=== PATIENT | male | born 2000 | race Caucasian/White ===

== ENCOUNTER 2024-02-01 21:05 | Emergency (ER) | payer OTHER ==
[2024-02-01 21:20] LABS: BASOPHILS ABSOLUTE AUTO 0.07 K/uL (0.00-0.20); BASOPHILS PERCENT AUTO 0.8 % (0.0-1.0); EOSINOPHILS ABSOLUTE AUTO 0.12 K/uL (0.00-0.45); EOSINOPHILS PERCENT AUTO 1.4 % (0.0-6.0); HEMATOCRIT 43.7 % (42.0-52.0); HEMOGLOBIN 15.3 g/dL (14.0-18.0); IMMATURE GRAN ABSOLUTE AUTO 0.16 K/uL (0.00-0.05); IMMATURE GRAN PERCENT AUTO 1.9 % (0.0-0.4); LYMPHOCYTES ABSOLUTE AUTO 3.69 K/uL (1.00-4.80); LYMPHOCYTES PERCENT AUTO 43.9 % (24.0-44.0); MEAN CORPUSCULAR HEMOGLOBIN 29.8 pg (28.0-32.0); MEAN PLATELET VOLUME 9.1 fL (9.4-12.4); MONOCYTES ABSOLUTE AUTO 0.56 K/uL (0.00-0.80); MONOCYTES PERCENT AUTO 6.7 % (0.0-8.0); NEUTROPHILS ABSOLUTE AUTO 3.81 K/uL (1.80-7.70); NEUTROPHILS PERCENT AUTO 45.3 % (41.0-71.0); PLATELET COUNT,PLT 319 K/uL (150-400); RED BLOOD CELL COUNT 5.14 M/uL (4.52-5.90); WHITE BLOOD CELL COUNT,WBC 8.41 K/uL (3.9-11.3)
[2024-02-01 21:33] LABS: INR 0.95 (0.86-1.11)
[2024-02-01] MEDS: Iopamidol 755 MG/ML 500 ML Multipack Bottle IVPUSH STA (21:48)
[2024-02-01 21:52] LABS: A/G RATIO 1.3 (0.9-1.6); ALANINE AMINOTRANSFERASE,ALT 81 IU/L (14-63); ALBUMIN 4.1 g/dL (3.4-5.0); ALKALINE PHOSPHATASE 121 U/L (46-116); ASPARTATE AMNIOTRANSFERASE,AST 25 IU/L (15-37); BILIRUBIN TOTAL 0.5 mg/dL (0.2-1.0); BLOOD UREA NITROGEN,BUN 20 mg/dL (7.0-18.0); CALCIUM 9.9 mg/dL (8.5-10.1); CARBON DIOXIDE,CO2 27.5 mmol/L (21.0-32.0); CHLORIDE,CL 105 mmol/L (98-107); CREATININE 1.2 mg/dL (0.8-1.3); EST CRCL DRUG DOSING (CG) 89.51 mL/min; ESTIMATED GFR 87 mL/min (>60); ETHANOL BLOOD MEDICAL <3 mg/dL; GLUCOSE RANDOM 124 mg/dL (74-106); POTASSIUM,K 4.4 mmol/L (3.5-5.1); PROTEIN TOTAL,TP 7.3 g/dL (6.4-8.2); SODIUM,NA 142 mmol/L (136-148)
[2024-02-01] MEDS: Morphine 4 MG/ML Syringe IVPUSH ONE (22:11)
[2024-02-01 22:55] LABS: APPEARANCE,URINE CLEAR; BILIRUBIN,URINE NEGATIVE (NEGATIVE); COLOR,URINE YELLOW; GLUCOSE,URINE NEGATIVE (NEGATIVE); KETONES,URINE NEGATIVE (NEGATIVE); LEUKOCYTE ESTERASE,URINE NEGATIVE (NEGATIVE); NITRITE,URINE NEGATIVE (NEGATIVE); OCCULT BLOOD,URINE NEGATIVE (NEGATIVE); PROTEIN,URINE NEGATIVE (NEGATIVE); UROBILINOGEN,URINE 0.2 EU/dL (<2.0)
[2024-02-01 23:01] LABS: AMPHETAMINES SCREEN, URINE NEGATIVE (CUTOFF=500); BARBITURATE SCREEN,URINE NEGATIVE (CUTOFF=200); BENZODIAZEPINES SCREEN,URINE NEGATIVE (CUTOFF=150); BUPRENORPHINE SCREEN,URINE NEGATIVE (CUTOFF=10); METHADONE SCREEN, URINE NEGATIVE (CUTOFF=200); METHAMPHETAMINES SCREEN, URINE NEGATIVE (CUTOFF=500); OXYCODONE SCREEN,URINE NEGATIVE (CUT0FF=100); PCP SCREEN,URINE NEGATIVE (CUTOFF=25); THC SCREEN,URINE 20 NG/ML NEGATIVE (CUTOFF=50)
== END 2024-02-01 23:45 | disposition home or self-care (01) ==
LOC: MW.ED 21:05
DX: S42.031A Displaced fracture of lateral end of right clavicle, initial encounter for closed fracture (principal); Z75.8 Other problems related to medical facilities and other health care; V86.56XA Driver of dirt bike or motor/cross bike injured in nontraffic accident, initial encounter; Y93.89 Activity, other specified
CPT/HCPCS: 36415; 70450; 71260; 72125; 73000; 74177; 80053; 80305; 80307; 81003; 85025; 85610; 96374; 99284; J2270; Q9967; 99285

== ENCOUNTER 2024-02-08 10:23 | Day surgery (SDC) | payer OTHER ==
[~2024-02-08 10:23] MED LIST: Albuterol 0.083% 2.5 MG/3 ML Neb Soln NEB PRN; HYDROmorphone 1 MG/ML Syringe IVPUSH PRN; Ketamine HCL/NACL, ISO-OSM 50 MG/5 ML Syringe ONE; Lidocaine 2% 5 ML SDV ONE; Metoclopramide 10 MG/2 ML SDV IVPUSH PRN; Midazolam 1 MG/ML 2 ML SDV ONE; Morphine 2 MG/ML SYRINGE IVPUSH PRN; Naloxone 0.4 MG/ML SDV IVPUSH PRN; Ondansetron 4 MG/2 ML SDV IVPUSH PRN; Rocuronium Bromide 50 MG/5 ML Syringe ONE; Ropivacaine 0.5% 5 MG/ML 30 ML SDV ONE; ceFAZolin 2 GM in Sodium Chloride 0.9% 50 ML IV ONE; dexmedeTOMIDine HCl 200 MCG/2 ML SDV ONE; droPERidol 5 MG/2 ML SDV IVPUSH PRN; fentaNYL 100 MCG/2 ML SDV ONE; fentaNYL 250 MCG/5 ML SDV ONE; fentaNYL 50 MCG/ML SDV IVPUSH PRN; propofoL 0 ML ONE
[2024-02-08] MEDS ORDERED: Bupivacaine 0.25% 30 ML SDV ONE (11:03)
[2024-02-08] MEDS ORDERED: Bupivacaine 0.5%/EPINEPHrine 1:200,000 30 ML SDV ONE (11:03)
[2024-02-08] MEDS: Lactated Ringers 1,000 ML IV SCH (11:08)
[2024-02-08] MEDS ORDERED: Lidocaine 2% 11 ML Jelly Filled Syringe ONE (12:43)
[2024-02-08] MEDS ORDERED: ceFAZolin 2 GM Vial ONE (13:08)
[2024-02-08] MEDS ORDERED: Dexamethasone 4 MG/ML 5 ML MDV ONE (13:47)
[2024-02-08] MEDS ORDERED: Ketorolac 30 MG/ML SDV ONE (13:47)
[2024-02-08] MEDS ORDERED: Phenylephrine HCl In 0.9% NaCl 1 MG/10 ML Syringe ONE (13:47)
[2024-02-08] MEDS ORDERED: Ondansetron 4 MG/2 ML SDV ONE (13:47)
[2024-02-08] MEDS ORDERED: Propofol 200 MG/20 ML SDV ONE (14:26)
[2024-02-08] MEDS ORDERED: propofoL 50 ML ONE (14:26)
[2024-02-08] MEDS ORDERED: Sugammadex Sodium 200 MG/2 ML VIAL IV ONE (14:31)
== END 2024-02-08 16:20 | disposition home or self-care (01) ==
LOC: MW.SDS 10:23
PROVIDERS: ATTEND Orthopaedic Surgery
DX: S42.021A Displaced fracture of shaft of right clavicle, initial encounter for closed fracture (principal); F17.200 Nicotine dependence, unspecified, uncomplicated; Z88.5 Allergy status to narcotic agent; V86.56XA Driver of dirt bike or motor/cross bike injured in nontraffic accident, initial encounter
CPT/HCPCS: 23515; A9270; J0131; J0690; J1100; J1885; J2250; J2371; J2405; J2704; J2795; J3010; J3490; J7120; J0665

== ENCOUNTER 2024-07-04 23:05 | Emergency (ER) | payer BC ==
[2024-07-04] MEDS: Sodium Chloride 0.9% 1,000 ML IV STA (23:30)
[2024-07-04] MEDS: EPINEPHrine 1:10,000 1 MG/10 ML Syringe IVPUSH ONE ×3 (23:31)
[2024-07-04] MEDS: Sodium Bicarbonate 8.4% 50 MEQ/50 ML Syringe IVPUSH ONE ×4 (23:31)
[2024-07-04] MEDS: Amiodarone 150 MG/100 ML 150 MG in Premix Bag 1 BAG IV ONE (23:32)
[2024-07-04] MEDS: Naloxone 0.4 MG/ML SDV IVPUSH ONE (23:32)
[2024-07-04] MEDS: Amiodarone 150 MG/3 ML SDV IV STA (23:34)
== END 2024-07-05 01:45 | disposition expired ==
LOC: MW.ED 23:05 → MERGE 23:05 → EDBD 23:05 → MW.ED 07-05 01:45
DX: I46.9 Cardiac arrest, cause unspecified (principal); T40.604A Poisoning by unspecified narcotics, undetermined, initial encounter; I49.01 Ventricular fibrillation; G93.1 Anoxic brain damage, not elsewhere classified
CPT/HCPCS: 36680; 92950; 96374; 96375; 99285; J0282; J2310; J7030; J3490